=== PATIENT | female | born 1950 | race Caucasian/White ===

== ENCOUNTER → 2016-11-22 | Outpatient (CLI) | payer OTHER ==
[~2016-11-22] MED LIST: ESCI10TA PO; IBUP400T20 PO; LEVO50TA4 PO; MELO7.5T4 PO; PRAV40TA2 PO; PRED20 PO; TRIA40P I-ARTICULR; VALS80TA2 PO
--- NOTE | 2016-11-22 14:35 | RADRPT ---
EXAM DATE/TIME: 11/22/2016 14:11 [facility] COMPARISON: No previous studies available for comparison. INDICATIONS : Left hip pain with no known trauma. MEDICAL HISTORY : Arthritis. SURGICAL HISTORY : None. ENCOUNTER: Initial ACUITY: 2 months PAIN SCORE: 8/10 LOCATION: Left Hip FINDINGS: Examination of the left hip was performed with AP Pelvis. The primary and secondary trabecular patte rn of the femoral neck is intact. The hip joint is of normal width without significant sclerosis or bony hypertrophy. The acetabulum is grossly intact. CONCLUSION: No acute disease. Messi Squires MD on November 22, 2016 at 14:33 Board Certified Radiologist. This report was verified electronically.
--- NOTE | 2016-11-22 14:47 | RADRPT ---
EXAM DATE/TIME: 11/22/2016 14:11 [facility] COMPARISON: No previous studies available for comparison. INDICATIONS : Right knee pain with no known trauma. MEDICAL HISTORY : Arthritis. SURGICAL HISTORY : None. ENCOUNTER: Initial ACUITY: 7 - 11 months PAIN SCORE: 8/10 LOCATION: Right knee FINDINGS: There is narrowing of the medial joint space. Osteophytes are seen medially. There is a minimal effus ion. No fracture seen. CONCLUSION: Degenerative change of the medial joint space and a minimal effusion. Himanshu Starkey MD on November 22, 2016 at 14:43 Board Certified Radiologist. This report was verified electronically.
== END ==
LOC: HRAD 13:54
PROVIDERS: ATTEND Family Medicine
DX: M17.11 Unilateral primary osteoarthritis, right knee (principal); M25.552 Pain in left hip
CPT/HCPCS: 73502; 73564

== ENCOUNTER → 2017-02-12 | Outpatient (CLI) | payer OTHER ==
[~2017-02-12] VITALS: Ht 160 cm; Wt 65.2 kg
[~2017-02-12] MED LIST changes: +CHLORHEXIDINE GLUCONATE 2 % 1 PACK (2 CLOTHS) TOPICAL PRN; +INSULIN HUMAN REGULAR 1,000 UNITS/10 ML VIAL SQ PRN; +LACTATED RINGER'S 1000 ML IV PRN; -MELO7.5T4 PO; +METOPROLOL TARTRATE 25 MG TAB PO PRN; +POVIDONE IODINE 5% (ANTISEPSIS KIT) 4 APPLICATIONS EACH NARE PRN; -PRED20 PO; +PROPOFOL 200 MG/20 ML AMP IV ONE; +SODIUM CHLORID 0.9% 500 ML IV PRN
[2017-02-12 11:32] VITALS: BP 126/90; PULSE 79; RESP 20; TEMP 98.5; O2SAT 96
[2017-02-12 13:25] VITALS: TEMP 97.6
[2017-02-12 13:45] VITALS: BP 130/76; PULSE 76; RESP 18; O2SAT 97
--- NOTE | 2017-02-12 14:31 | EKG ---
Date Performed: 02/12/2017 Time Performed: 11:44:56 PTAGE: 66 years EKG: Sinus rhythm NORMAL ECG NO PREVIOUS TRACING DOCTOR: Alejandro Dickinson Interpretating Date/Time 02/12/2017 14:29:41
== END ==
LOC: HEND 11:03
DX: Z12.11 Encounter for screening for malignant neoplasm of colon (principal); K57.90 Diverticulosis of intestine, part unspecified, without perforation or abscess without bleeding; Z01.810 Encounter for preprocedural cardiovascular examination
CPT/HCPCS: 00810; 45378; 93005; J7120

== ENCOUNTER 2017-05-20 14:42 | Emergency (ER) | payer OTHER ==
[~2017-05-20] VITALS: Ht 160 cm; Wt 67.7 kg
[~2017-05-20 14:42] MED LIST changes: -CHLORHEXIDINE GLUCONATE 2 % 1 PACK (2 CLOTHS) TOPICAL PRN; +IBUP-232 PO; -IBUP400T20 PO; -INSULIN HUMAN REGULAR 1,000 UNITS/10 ML VIAL SQ PRN; -LACTATED RINGER'S 1000 ML IV PRN; -METOPROLOL TARTRATE 25 MG TAB PO PRN; -POVIDONE IODINE 5% (ANTISEPSIS KIT) 4 APPLICATIONS EACH NARE PRN; -PROPOFOL 200 MG/20 ML AMP IV ONE; -SODIUM CHLORID 0.9% 500 ML IV PRN; -TRIA40P I-ARTICULR
[2017-05-20 15:06] VITALS: BP 117/65; PULSE 82; RESP 20; TEMP 98.2; O2SAT 92
--- NOTE | 2017-05-20 16:41 | PD ---
HPI Chief Complaint: Fall Time Seen by Provider: 16:20 Travel History International Travel<30 days: No Contact w/Intl Traveler<30days: No History of Present Illness HPI 66-year-old female presents to the emergency room for evaluation of neck pain after trip and fall 2 days ago. Patient tripped while walking over the threshold of the door and fell forward striking the left side of her face on the carpet. She denies loss of consciousness. She is not on blood thinners. Denies headache, nausea, vomiting, or changes in mental status. Patient lost her right central incisor. She went to the dentist this morning and while there mentioned her neck pain. The dentist recommended she come to the emergency room for evaluation. Neck pain is midline without radiation. She denies paresthesias. She has been taking 800 mg ibuprofen without significant relief in symptoms. It is worsened with range of motion. PFSH Social History Tobacco Use: No Allergies-Medications (Allergen,Severity, Reaction): Coded Allergies: No Known Allergies (Unverified , 05/20/17) Reported Meds & Prescriptions Reported Meds & Active Scripts Active Valsartan-Hydrochlorothiazide 80-12.5 Mg Tab 1 Tab PO DAILY Levothyroxine (Levothyroxine Sodium) 50 Mcg Tab 50 Mcg PO DAILY Pravastatin 40 Mg Tab 40 Mg PO DAILY Escitalopram (Escitalopram Oxalate) 10 Mg Tab 10 Mg PO DAILY Review of Systems Except as stated in HPI: all other systems reviewed are Neg Physical Exam Narrative GENERAL: Well-nourished, well-developed female in no acute distress. Afebrile. Ambulatory. SKIN: Focused skin assessment warm/dry. No erythema or ecchymosis. There is a small abrasion to the left forehead. HEAD: Normocephalic. EYES: No scleral icterus. No injection or drainage. NECK: Supple. No meningeal signs. Trachea midline. Mild tenderness to palpation of the midline especially over C6 and C7. Full range of motion without significant pain. CARDIOVASCULAR: Regular rate and rhythm without murmurs, gallops, or rubs. RESPIRATORY: Breath sounds equal bilaterally. No accessory muscle use. NEUROLOGICAL: Awake and alert. Cranial nerves II through XII intact. Motor and sensory grossly within normal limits. Five out of 5 muscle strength in all muscle groups. Normal speech. Data Data Last Documented VS Vital Signs Date Time Temp Pulse Resp B/P (MAP) Pulse Ox O2 Delivery O2 Flow Rate FiO2 05/20/17 15:06 98.2 82 20 117/65 (82) [address] Cerv Spine W/O Contrast (05/20/17 ) MDM Medical Decision Making Medical Screen Exam Complete: Yes Emergency Medical Condition: Yes Medical Record Reviewed: Yes Differential Diagnosis Cervical strain, spondylolisthesis, fracture Narrative Course 66-year-old female presents to the emergency room for evaluation of posterior neck pain after trip and fall 2 days ago. Patient fell forward striking her head on the carpet. She had headache at the time of that has gone away. Denies loss of consciousness. She is not on blood thinners. Patient denies paresthesias. States she has been taking 800 mg ibuprofen without significant relief in symptoms. Physical exam reveals some midline tenderness over C6 and C7. No erythema, ecchymosis, edema, or step-off deformity. Full range of motion. [place] CT cervical spine rule recommends imaging given patient's midline tenderness. CT is negative. Cervical strain. Patient discharged with prescription for ibuprofen and Robaxin. Told to follow up with a primary care physician if symptoms persist for outpatient MRI or return for worsening symptoms. She understands and agrees to plan. Diagnosis Primary Impression: Cervical strain, acute Qualified Codes: S16.1XXA - Strain of muscle, fascia and tendon at neck level , initial encounter Referrals: Primary Care Physician Additional Instructions: Rest and drink plenty of fluids. Take Robaxin as directed, as needed for pain. Take ibuprofen with food as directed, as needed for pain. Apply ice to the affected area for 20 minutes at a time, as needed for pain and swelling. Follow-up with a primary care physician. Return to the emergency room for worsening symptoms. Med/Other Pt SpecificInfo: Prescription(s) given Disposition: 01 DISCHARGE HOME Condition: Stable Cindy Ureña May 20, 2017 16:40
--- NOTE | 2017-05-20 17:26 | RADRPT ---
EXAM DATE/TIME: 05/20/2017 17:08 [facility] COMPARISON: No previous studies available for comparison. INDICATIONS : Fell two days ago. Posterior neck pain. RADIATION DOSE: 25.99 CTDIvol (mGy) MEDICAL HISTORY : None SURGICAL HISTORY : None. ENCOUNTER: Initial ACUITY: 2 days PAIN SCALE: 8/10 LOCATION: neck TECHNIQUE: Volumetric scanning of the cervical spine was performed. Multiplanar reconstructions i n the sagittal, coronal and oblique axial planes were performed. Using automated exposure control a nd adjustment of the mA and/or kV according to patient size, radiation dose was kept as low as reason ably achievable to obtain optimal diagnostic quality images. DICOM format image data is available e lectronically for review and comparison. FINDINGS: The sagittal reconstructions demonstrate normal alignment and normal prevertebral soft tissues. The d ens is intact and there is a normal atlantoaxial relationship. The axial images demonstrate that the vertebral bodies and posterior elements are intact. The soft ti ssues are within normal limits. There is no evidence of acute fracture or malalignment. There are deg enerative changes involving left C4-5 facet and right C5-6 facet. CONCLUSION: Negative trauma CT. Vitor Pedersen MD on May 20, 2017 at 17:22 Board Certified Radiologist. This report was verified electronically.
[2017-05-20] MEDS ORDERED: IBUP-232 PO (17:38)
[2017-05-20] MEDS ORDERED: ROBA750T PO (17:39)
== END 2017-05-20 17:45 | disposition home or self-care (01) ==
LOC: PHED 14:42 → PHEFT 17:45
DX: S16.1XXA Strain of muscle, fascia and tendon at neck level, initial encounter (principal); W01.198A Fall on same level from slipping, tripping and stumbling with subsequent striking against other object, initial encounter; Y93.01 Activity, walking, marching and hiking; Y92.008 Other place in unspecified non-institutional (private) residence as the place of occurrence of the external cause
CPT/HCPCS: 72125; 99284

== ENCOUNTER 2017-05-23 10:07 | Emergency (ER) | payer OTHER ==
[~2017-05-23] VITALS: Ht 160 cm; Wt 67.6 kg
[~2017-05-23 10:07] MED LIST changes: +ROBA750T PO
[2017-05-23 10:09] VITALS: BP 139/79; PULSE 89; RESP 18; TEMP 98.7; O2SAT 99
--- NOTE | 2017-05-23 10:25 | PD ---
HPI Chief Complaint: Edema Time Seen by Provider: 10:25 Travel History International Travel<30 days: No Contact w/Intl Traveler<30days: No Traveled to known affect area: No History of Present Illness HPI 66-year-old female came to the emergency room with history of some facial swelling mostly on the right side that was more pronounced this morning. Patient had a major dental procedure done 3 days ago. Since then she did develop facial swelling mostly on the upper lip. She has been icing it and taking Excedrin Migraine. However this morning she noticed that the right side of her face as well as around the eyelid there was significant swelling which concerned her and hence she came in. No history of fever or chills. No history of severe pain. No history of airway issues or swallowing issues. Upon asking patient said she was laying on the right side of her face at night. [facility] Past Medical History Narrative Medical List of her past medical, surgical, social and family history is reviewed from the nursing note. ?: Not Social History Tobacco Use: No Allergies-Medications (Allergen,Severity, Reaction): Coded Allergies: No Known Allergies (Unverified , 05/23/17) Comments No known drug allergies. Reported Meds & Prescriptions Reported Meds & Active Scripts Active Robaxin (Methocarbamol) 750 Mg Tab 750 Mg PO Q8HR Ibuprofen 600 Mg Tab 600 Mg PO Q8HR PRN Valsartan-Hydrochlorothiazide 80-12.5 Mg Tab 1 Tab PO DAILY Levothyroxine (Levothyroxine Sodium) 50 Mcg Tab 50 Mcg PO DAILY Pravastatin 40 Mg Tab 40 Mg PO DAILY Escitalopram (Escitalopram Oxalate) 10 Mg Tab 10 Mg PO DAILY Narrative Medication Most of her home medications reviewed from the nursing note. Review of Systems Except as stated in HPI: all other systems reviewed are Neg Physical Exam Narrative GENERAL: Awake, alert, anxious SKIN: Focused skin assessment warm/dry. Right side of the face looks puffier than the left. Periorbital edema especially on the lower eyelid which appears to be fluid filled. Nontender and no erythema. HEAD: Atraumatic. Normocephalic. EYES: Pupils equal and round. No scleral icterus. No injection or drainage. ENT: No nasal bleeding or discharge. Mucous membranes pink and moist. Upper lip slightly swollen. The stitches look intact. No obvious bleeding. NECK: Trachea midline. No JVD. CARDIOVASCULAR: Regular rate and rhythm. No murmur appreciated. RESPIRATORY: No accessory muscle use. Clear to auscultation. Breath sounds equal bilaterally. GASTROINTESTINAL: Abdomen soft, non-tender, nondistended. Hepatic and splenic margins not palpable. MUSCULOSKELETAL: No obvious deformities. No clubbing. No cyanosis. No edema. NEUROLOGICAL: Awake and alert. No obvious cranial nerve deficits. Motor grossly within normal limits. Normal speech. PSYCHIATRIC: Appropriate mood and affect; insight and judgment normal. Data Data Last Documented VS Vital Signs Date Time Temp Pulse Resp B/P (MAP) Pulse Ox O2 Delivery O2 Flow Rate FiO2 05/23/17 10:09 98.7 89 18 139/79 (99) 99 MDM Medical Decision Making Medical Screen Exam Complete: Yes Emergency Medical Condition: Yes Medical Record Reviewed: Yes Differential Diagnosis Dental procedure, postprocedure swelling Narrative Course 10:36 AM patient was given reassurance. I'll discharge her home with instructions. Procedures EKG Prior to Arrival: No Diagnosis Primary Impression: post operative swelling Additional Impression: Post-operative complication Qualified Codes: L76.82 - Other postprocedural complications of skin and subcutaneous tissue Referrals: Primary Care Physician Additional Instructions: Please return to the ER if the condition worsens mainly in the form of pain, fever, redness or any other concerns. Otherwise follow-up with your dentist. Apply cold compress and keep the head in an elevated position especially when asleep to drain the swelling down. Med/Other Pt SpecificInfo: No Change to Meds Disposition: 01 DISCHARGE HOME Condition: Stable Renetta Roberson MD May 23, 2017 10:25
== END 2017-05-23 10:40 | disposition home or self-care (01) ==
LOC: PHEFT 10:07
DX: R22.0 Localized swelling, mass and lump, head (principal)
CPT/HCPCS: 99282

== ENCOUNTER 2018-09-06 12:18 | Observation (INO) ==
[2018-09-06] MEDS ORDERED: Methocarbamol 500 MG Tablet PO ONE (12:53)
[2018-09-06 13:23] LABS: Baso % (Auto) 0.8 % (0.0-2.0); Eos # (Auto) 0.1 th/mm3 (0.0-0.4); Eos % (Auto) 3.5 % (0.0-4.0); Hematocrit 36.1 % (35.0-46.0); Lymph % (Auto) 22.9 % (9.0-44.0); Mean Corpuscular HGB Conc 33.3 % (32.0-36.0); Mean Corpuscular Hemoglobin 30.3 pg (27.0-34.0); Mean Corpuscular Volume 90.8 fL (80.0-100.0); Mean Platelet Volume 6.6 fL (7.0-11.0); Mono # (Auto) 0.4 th/mm3 (0.0-0.9); Mono % (Auto) 9.5 % (0.0-8.0); Neut # (Auto) 2.7 th/mm3 (1.8-7.7); Neut % (Auto) 63.3 % (16.0-70.0); Platelet Count 209 th/mm3 (150-450); Red Blood Count 3.97 mil/mm3 (4.00-5.30); Red Cell Distribution Width 11.6 % (11.6-17.2); White Blood Count 4.2 th/mm3 (4.0-11.0)
[2018-09-06 13:33] LABS: Chloride 100 meq/L (98-107); Potassium 3.1 meq/L (3.5-5.1); Sodium 139 meq/L (136-145)
--- NOTE | 2018-09-06 13:35 | ED ---
HPI General Chief Complaint: Back Pain/Injury Stated Complaint: Sharp Pain/Lt side Back Recent Detatched Retina Sx Time Seen by Provider: 09/06/18 12:42 Source: patient Mode of arrival: ambulatory Limitations: no limitations History of Present Illness HPI Narrative: 68y female presents to the ED for evaluation of back pain that worsened today. She states she had a retinal surgery and has been required to sit upright for the last several days, likely causing her symptoms. She describes it as sharp, moderate in severity and focused in the upper left shoulder blade. She has not taken any medication for her discomfort. She decided to come in today for evaluation for concern of her heart. She say her brother recently had a heart attack with subsequent stent placement. She also reports chest pain that has occurred a couple times within the last couple of days. She states her last episode of chest pain was this morning that was "a twinge" before resolving spontaneously. Denies palliative or provocative factors. Says the location is mid chest and is nonradiating. She denies cardiac history but states she has a history of hyperlipidemia and hypertension. As discussed previously, she does have a family history of heart problems as her brother has had [place] with stent placement. She denies shortness of breath, nausea, vomiting. MD Complaint: Reports back pain Onset (ago): day(s) Duration: Reports intermittent Similar Symptoms Previously: No Exacerbating factors: sitting upright Related Data Home Medications Medication Instructions Recorded Confirmed celecoxib 200 mg PO BID 08/21/18 09/06/18 levothyroxine 50 mcg PO DAILY 08/21/18 09/06/18 losartan-hydrochlorothiazide 1 tab PO DAILY 08/21/18 09/06/18 oxycodone-acetaminophen 1 - 2 tab PO Q4-6H PRN 08/21/18 09/06/18 pravastatin 40 mg PO DAILY 08/21/18 09/06/18 sertraline 100 mg PO DAILY 08/21/18 09/06/18 Allergies Allergy/AdvReac Type Severity Reaction Status Date / Time No Known Allergies Allergy Verified 09/06/18 12:38 Review of Systems ROS: all other systems reviewed are negative [facility] Family History Family History Brother Myocardial infarction Social History Social History Substance History: No History of Abuse Second Hand Smoke Exposure: No Smoking Status: Former smoker Tobacco Type: Cigarettes How Often Do You Have a Drink Containing Alcohol: 4 or more times a week Recent Travel in [facility] within the Last 8 Weeks: No Recent Out of Country Travel within the Last 8 Weeks: No Immunization History Tetanus Immunization: Unsure Exam Narrative Exam Narrative: GENERAL: WD, WN in NAD SKIN: Focused skin assessment warm/dry. HEAD: Atraumatic. Normocephalic. EYES: Pupils equal and round. No scleral icterus. No injection or drainage. ENT: No nasal bleeding or discharge. Mucous membranes pink and moist. No tonsillar hypertrophy or exudate. NECK: Trachea midline. No JVD. No meningismus. No midline tenderness. CARDIOVASCULAR: Regular rate and rhythm. No murmur appreciated. RESPIRATORY: No accessory muscle use. Clear to auscultation. Breath sounds equal bilaterally. No CVA tenderness MUSCULOSKELETAL: No obvious deformities. No clubbing. No cyanosis. No edema. No tenderness to palpation of the calves. Sensation intact to bilateral lower extremities. Left shoulder-tenderness palpation of the shoulder musculature that reproduces some of her shoulder pain. Notable muscle spasms. NEUROLOGICAL: Awake and alert. No obvious cranial nerve deficits. Motor grossly within normal limits. Normal speech. PSYCHIATRIC: Appropriate mood and affect; insight and judgment normal. Course Initial Documented Vital Signs Temperature 98.8 F 09/06/18 12:32 Pulse Rate 75 09/06/18 12:32 Respiratory Rate 16 09/06/18 12:32 Blood Pressure 141/88 H 09/06/18 12:32 Pulse Oximetry 98 09/06/18 12:32 Last Documented Vital Signs Temperature 98.3 F 09/06/18 16:00 Pulse Rate 74 09/06/18 16:00 Respiratory Rate 20 09/06/18 16:00 Blood Pressure 134/82 09/06/18 16:00 Pulse Oximetry 96 09/06/18 16:00 Medical Decision Making ALINE Attestation ALINE supervised visit: Yes Attestation: I, Dr. Huitron, have reviewed the advance practice practitioner's documentation and am in agreement, met with the patient face to face, made the diagnosis, and the medical decision making was done by me. *My assessment and Findings: GERD vs. musculoskeletal pain vs. ACS 68yo F with HTN and HLD here with atypical chest pain. Labs reviewed, no leukocytosis. H/H normal. Mild hypokalemia at 3.1, replaced. Troponin negative. CXR negative. Even though chest pain is atypical, she has cardiac risk factors so will do serial EKG and cardiac enzyme in chest pain center. MDM Narrative Medical decision making narrative: 68-year-old female presents to the emergency department for evaluation of left upper shoulder pain and chest pain. She states that she has had to sit upright since her surgery couple of days ago and this may have exacerbated her left upper shoulder pain. She also reports a couple of days of intermittent chest pain that is located in the middle of her chest, described as a "twinge" before resolving spontaneously. No palliative or provocative factors. Denies history of cardiac issues. She does report a history of hypertension hyperlipidemia. She also states that her brother was recently diagnosed and treated with 2 heart stents. Her vital signs are stable. Exam findings the measured well-developed well-nourished 68-year-old female in no acute distress. Patient is sitting upright. She has tenderness palpation of the left shoulder musculature that reproduces some of her back pain. She has no tenderness palpation of the chest wall. Aspirin 325 mg administered. Robaxin for muscle spasms of her back. After examination, she states that the pain is no better and is worsening. Administer hydrocodone for pain. She still appears well, nontoxic. EKG shows sinus rhythm without ST elevation or depression at rate 61. Labs notable for potassium 3.1, administered 40meq potassium p.o. Troponin 0.02. At this point, believe patient has muscle spasms secondary to her sitting up in bed as directed by her previous provider for her retinal surgery. I believe it is reasonable to admit this patient to the chest pain center as well for her intermittent chest pain throughout the week. At admission, patient is chest pain-free. She states her last chest pain was this morning. Medical Screen Exam Complete: Yes Emergency Medical Condition: Yes Differential Diagnosis Differential Diagnosis: AMI, angina, unstable angina, costochondritis, rib fracture, pneumonia, pneumothorax, aortic dissection, aortic aneurysm, pneumonitis, pulmonary embolism. Muscle spasms, muscle strain Lab Data Result diagrams: 09/06/18 13:10 09/06/18 13:10 Lab Results 09/06/18 09/06/18 09/06/18 Range/Units 13:10 13:10 13:10 CBC w Diff Auto diff final WBC 4.2 (4.0-11.0) th/mm3 RBC 3.97 L (4.00-5.30) mil/mm3 Hgb 12.0 (11.6-15.3) gm/dL Hct 36.1 (35.0-46.0) % MCV 90.8 (80.0-100.0) fL MCH 30.3 (27.0-34.0) pg MCHC 33.3 (32.0-36.0) % RDW 11.6 (11.6-17.2) % Plt Count 209 (150-450) th/mm3 MPV 6.6 L (7.0-11.0) fL Neut % (Auto) 63.3 (16.0-70.0) % Lymph % (Auto) 22.9 (9.0-44.0) % [place] % (Auto) 9.5 H (0.0-8.0) % Eos % (Auto) 3.5 (0.0-4.0) % Baso % (Auto) 0.8 (0.0-2.0) % Neut # (Auto) 2.7 (1.8-7.7) th/mm3 Lymph # (Auto) 1.0 (1.0-4.8) th/mm3 [place] # (Auto) 0.4 (0.0-0.9) th/mm3 Eos # (Auto) 0.1 (0.0-0.4) th/mm3 Baso # (Auto) 0.0 (0.0-0.2) th/mm3 WBC Differential . Differential Comment . PT 10.7 (9.8-11.6) sec INR 1.1 Ratio APTT 25.2 (23.4-31.7) sec Sodium 139 (136-145) meq/L Potassium 3.1 L (3.5-5.1) meq/L Chloride 100 (98-107) meq/L Carbon Dioxide 30.9 (21.0-32.0) meq/L Anion Gap 8 (5-15) meq/L BUN 18 (7-18) mg/dL Creatinine 0.65 (0.50-1.00) mg/dL Estimated GFR Greater than 89 (>89) mL/min Random Glucose 103 (74-106) mg/dL Calcium 8.8 (8.5-10.1) mg/dL Total Bilirubin 0.8 (0.2-1.0) mg/dL AST 18 (15-37) U/L ALT 25 (10-53) U/L Alkaline Phosphatase 84 (45-117) U/L Total Creatine Kinase (26-192) U/L Troponin I Less than 0.02 L (0.02-0.05) ng/mL Total Protein 7.3 (6.4-8.2) g/dL Albumin 4.3 (3.4-5.0) g/dL 09/06/18 09/06/18 Range/Units 15:50 18:48 CBC w Diff WBC (4.0-11.0) th/mm3 RBC (4.00-5.30) mil/mm3 Hgb (11.6-15.3) gm/dL Hct (35.0-46.0) % MCV (80.0-100.0) fL MCH (27.0-34.0) pg MCHC (32.0-36.0) % RDW (11.6-17.2) % Plt Count (150-450) th/mm3 MPV (7.0-11.0) fL Neut % (Auto) (16.0-70.0) % Lymph % (Auto) (9.0-44.0) % [place] % (Auto) (0.0-8.0) % Eos % (Auto) (0.0-4.0) % Baso % (Auto) (0.0-2.0) % Neut # (Auto) (1.8-7.7) th/mm3 Lymph # (Auto) (1.0-4.8) th/mm3 [place] # (Auto) (0.0-0.9) th/mm3 Eos # (Auto) (0.0-0.4) th/mm3 Baso # (Auto) (0.0-0.2) th/mm3 WBC Differential Differential Comment PT (9.8-11.6) sec INR Ratio APTT (23.4-31.7) sec Sodium (136-145) meq/L Potassium (3.5-5.1) meq/L Chloride (98-107) meq/L Carbon Dioxide (21.0-32.0) meq/L Anion Gap (5-15) meq/L BUN (7-18) mg/dL Creatinine (0.50-1.00) mg/dL Estimated GFR (>89) mL/min Random Glucose (74-106) mg/dL Calcium (8.5-10.1) mg/dL Total Bilirubin (0.2-1.0) mg/dL AST (15-37) U/L ALT (10-53) U/L Alkaline Phosphatase (45-117) U/L Total Creatine Kinase 68 68 (26-192) U/L Troponin I Less than 0.02 L Less than 0.02 L (0.02-0.05) ng/mL Total Protein (6.4-8.2) g/dL Albumin (3.4-5.0) g/dL Imaging Data Radiologist's impression: Chest X-Ray 09/06/18 12:51 CONCLUSION: No evidence of acute cardiothoracic process. ECG Data EKG Prior to Arrival: No Attestation: I personally reviewed and interpreted this ECG as follows: Interpretation: NSR 61bpm. Normal axis. SC interval 163ms. No significant ST elevation or depression. Discharge Plan Discharge Disposition Patient Disposition: ED Admit(ED Internal Use Only) Discharge Condition Condition: Stable Discharge Order Discharge Orders: ED Use Only Admit Order (Routine); Ordered 09/06/18 Ordered By: Natalie Brownlee Discharge Details Diagnosis: Acute hypokalemia, Chest pain, Muscle spasm Physicians Team ED Provider: Sharmin Huitron ED Midlevel Provider: Natalie Brownlee Primary Care Provider: Timmy García Attending Provider: Corby Crook Other Providers: Tejas Heredia Status ED Status: Left Department Discharge Information Discharge Date/Time: 09/06/18 16:45
[2018-09-06 13:37] LABS: Calcium 8.8 mg/dL (8.5-10.1)
[2018-09-06 13:38] LABS: Albumin 4.3 g/dL (3.4-5.0); Anion Gap 8 meq/L (5-15); Blood Urea Nitrogen 18 mg/dL (7-18); Carbon Dioxide 30.9 meq/L (21.0-32.0); Glucose,Random 103 mg/dL (74-106)
[2018-09-06 13:41] LABS: Alanine Aminotransferase 25 U/L (10-53); Aspartate Aminotransferase 18 U/L (15-37); Glomerular Filtration Rate Greater Than 89 mL/min (>89)
--- NOTE | 2018-09-06 13:41 | XR ---
EXAM DATE: 09/06/2018 1:26 PM EST AGE/SEX: 68 years / Female INDICATIONS: Left sided back pain for two days. CLINICAL DATA: This is the patient's initial encounter. Patient reports that signs and symptoms have been present for 2 days and indicates a pain score of 6/10. MEDICAL/SURGICAL HISTORY: Hypertension. . Detached retina surgery. COMPARISON: No prior exams available for comparison. FINDINGS: A single AP view of the chest demonstrates the lungs to be symmetrically aerated without evidence of mass, infiltrate or effusion. The cardiomediastinal contours are unremarkable. Osseous structures a re intact. CONCLUSION: No evidence of acute cardiothoracic process. Electronically signed by: Messi Squires MD Board Certified Radiologist 09/06/2018 1:39 PM EST
[2018-09-06 13:43] LABS: Total Protein 7.3 g/dL (6.4-8.2)
[2018-09-06 13:44] LABS: Alkaline Phosphatase 84 U/L (45-117)
[2018-09-06 14:18] LABS: Activated Partial Thrombo Time 25.2 sec (23.4-31.7); INR 1.1 Ratio; Prothrombin Time 10.7 sec (9.8-11.6)
--- NOTE | 2018-09-06 14:21 | ECG ---
Date Performed: 09/06/2018 Time Performed: 13:30:49 PTAGE: 68 years EKG: Sinus rhythm NORMAL ECG PREVIOUS TRACING : 08/22/2018 14.53 No significant change from previous tracing noted. DOCTOR: Job Robins Interpretating Date/Time 09/06/2018 14:20:30
[2018-09-06] MEDS ORDERED: Acetaminophen 500 MG Tablet PO PRN (14:45)
[2018-09-06 16:41] LABS: Creatine Kinase 68 U/L (26-192)
--- NOTE | 2018-09-06 17:33 | P.HP ---
History of Present Illness Primary Care Physician: Timmy Dubois MD, R3 Chief Complaint: Back pain History of Present Illness: This is a 68-year-old female patient with a known medical history of hypertension, hyperlipidemia and hypothyroidism who presented to the ED for evaluation of back pain. Patient states that she is underwent recent retinal surgery and has been required to sit upright to sleep for the past several days , subsequently she has developed a back pain that is stated in her midsternal back, sharp in nature and denies any radiation of the pain. She states that the pain started roughly Friday night and has just become worse of the past couple days. When questioned about chest pain patient states that she had a quick sharp sensation this morning, otherwise she denies any chest pain. Patient denies any associated nausea, vomiting, diaphoresis or shortness of breath. It should be noted that patient's brother had an acute STEMI a couple weeks ago and patient expresses concern that she has similar presenting symptoms as he did, requesting evaluation on her heart. Denies ever having heart attack in the past. Does not follow with a maternity nurse. Has had a stress test roughly 15 years ago which was reportedly unremarkable. Denies any recent illness including fever, chills, cough, headache, abdominal pain, nausea , vomiting, diarrhea or dysuria. At the time of assessment patient states that her back pain has improved with the use of oxycodone. Denies any current chest pain. No chest pain to palpation. - Diagnosis (1) Back pain (2) Muscle spasm Review of Systems All other systems reviewed negative except as stated in HPI PMFSH - History History Provided By: Patient - Medical History Medical History: Medical History (Last Reviewed 09/06/18 @ 17:27 by Tatum Morales) Anxiety and depression Arthritis High cholesterol Hypertension Hypothyroidism Pain, joint, knee, right Retinal detachment Wears glasses - Surgical History Surgical History: Surgical History (Last Reviewed 09/06/18 @ 17:27 by Tatum Morales) History of total left knee replacement (TKR) History of total right knee replacement Hx of appendectomy Hx of hammer toe correction - Family History Family History: Family History (Last Updated 09/06/18 @ 17:27 by Tatum Morales) Brother Myocardial infarction - Social History I have reviewed the patient's Social History: Yes - Tobacco History Second Hand Smoke Exposure: No Tobacco Use In Past 30 Days: No Smoking Status: Former smoker - Alcohol History How Often Do You Have a Drink Containing Alcohol: 4 or more times a week - Substance Use History Substance History: No History of Abuse - Travel History Recent Travel in the [place] Within the Last 8 Weeks: No Recent Travel Out of the Country Within the Last 8 Weeks: No - Immunization History Tetanus Immunization: Unsure Medications and Allergies Active Medications: Active Medications Acetaminophen (Tylenol) 500 mg PO Q4H PRN PRN Reason: HEADACHE Sodium Chloride (Ns Flush) 2 ml IV.FLUSH UNSCH PRN PRN Reason: FLUSH AFTER USING IV ACCESS Sodium Chloride (Ns Flush) 2 ml IV.FLUSH BID PATRICIA Sodium Chloride (Ns Flush) 2 ml IV.FLUSH PRN PRN PRN Reason: FLUSH AFTER USING IV ACCESS Allergies Allergy/AdvReac Type Severity Reaction Status Date / Time No Known Allergies Allergy Verified 09/06/18 12:38 Home Medications Medication Instructions Recorded Confirmed Type celecoxib 200 mg PO BID 08/21/18 09/06/18 History levothyroxine 50 mcg PO DAILY 08/21/18 09/06/18 History losartan-hydrochlorothiazide 1 tab PO DAILY 08/21/18 09/06/18 History oxycodone-acetaminophen 1 - 2 tab PO Q4-6H PRN 08/21/18 09/06/18 History pravastatin 40 mg PO DAILY 08/21/18 09/06/18 History sertraline 100 mg PO DAILY 08/21/18 09/06/18 History Exam Vital signs: Vital Signs 09/06/18 12:32 09/06/18 13:55 09/06/18 15:53 Temperature 98.8 F Pulse Rate 75 72 82 Respiratory Rate 16 18 18 Blood Pressure 141/88 H 140/88 133/84 Pulse Oximetry 98 97 Intake & Output 09/05/18 09/06/18 09/06/18 18:59 06:59 18:59 Weight 63.3 kg Narrative: GENERAL: Well-developed, well-nourished patient in [facility]. SKIN: Warm and dry. No rash. HEAD: Normocephalic. Atraumatic. EYES: Pupils equal and round. No scleral icterus. Left eye conjunctival hemorrhage status post retinal surgery ENT: No nasal bleeding or discharge. Mucous membranes pink and moist. NECK: Supple. Trachea midline. CARDIOVASCULAR: Regular rate and rhythm. S1, S2 noted. No murmur appreciated. No chest pain to palpation RESPIRATORY: No accessory muscle use. Clear to auscultation. Breath sounds equal bilaterally. GASTROINTESTINAL: Abdomen soft, non-tender, nondistended. Normoactive bowel sounds x4. MUSCULOSKELETAL: No obvious deformities. Extremities without clubbing, cyanosis , or edema. NEUROLOGICAL: Awake and alert. No obvious cranial nerve deficits. Motor grossly within normal limits. 5/5 muscle strength in bilateral upper and lower extremities. Normal speech. PSYCHIATRIC: Appropriate mood and affect; insight and judgment normal. Results - Labs CBC & Chem 7: 09/06/18 13:10 09/06/18 13:10 Labs: Laboratory Results - last 24 hr 09/06/18 09/06/18 09/06/18 13:10 13:10 13:10 CBC w Diff Auto diff final WBC 4.2 RBC 3.97 L Hgb 12.0 Hct 36.1 MCV 90.8 MCH 30.3 MCHC 33.3 RDW 11.6 Plt Count 209 MPV 6.6 L Neut % (Auto) 63.3 Lymph % (Auto) 22.9 [place] % (Auto) 9.5 H Eos % (Auto) 3.5 Baso % (Auto) 0.8 Neut # (Auto) 2.7 Lymph # (Auto) 1.0 [place] # (Auto) 0.4 Eos # (Auto) 0.1 Baso # (Auto) 0.0 WBC Differential . Differential Comment . PT 10.7 INR 1.1 APTT 25.2 Sodium 139 Potassium 3.1 L Chloride 100 Carbon Dioxide 30.9 Anion Gap 8 BUN 18 Creatinine 0.65 Estimated GFR Greater than 89 Random Glucose 103 Calcium 8.8 Total Bilirubin 0.8 AST 18 ALT 25 Alkaline Phosphatase 84 Total Creatine Kinase Troponin I Less than 0.02 L Total Protein 7.3 Albumin 4.3 09/06/18 15:50 CBC w Diff WBC RBC Hgb Hct MCV MCH MCHC RDW Plt Count MPV Neut % (Auto) Lymph % (Auto) [place] % (Auto) Eos % (Auto) Baso % (Auto) Neut # (Auto) Lymph # (Auto) [place] # (Auto) Eos # (Auto) Baso # (Auto) WBC Differential Differential Comment PT INR APTT Sodium Potassium Chloride Carbon Dioxide Anion Gap BUN Creatinine Estimated GFR Random Glucose Calcium Total Bilirubin AST ALT Alkaline Phosphatase Total Creatine Kinase 68 Troponin I Less than 0.02 L Total Protein Albumin - Imaging Impressions Chest X-Ray 09/06/18 12:51 CONCLUSION: No evidence of acute cardiothoracic process. Caprini VTE Risk Assessment Caprini VTE Risk Assessment: Moderate/High Risk (score >= 2) Caprini Risk Assessment Model: Point Value = 1 Point Value = 2 Point Value = 3 Point Value = 5 Age 41-60 Minor surgery BMI > 25 kg/m2 Swollen legs Varicose veins or History of unexplained or recurrent spontaneous Oral contraceptives or hormone replacement Sepsis (< 1 month) Serious lung disease, including pneumonia (< 1 month) Abnormal pulmonary function Acute myocardial infarction Congestive heart failure (< 1 month) History of inflammatory bowel disease Medical patient at bed rest Age 61-74 Arthroscopic surgery Major open surgery (> 45 min) Laparoscopic surgery (> 45 min) Malignancy Confined to bed (> 72 hours) Immobilizing plaster cast Central venous access Age >= 75 History of VTE Family history of VTE Factor V Leiden Prothrombin [id number] Lupus anticoagulant Anticardiolipin antibodies Elevated serum homocysteine Heparin-induced thrombocytopenia Other congenital or acquired thrombophilia Stroke (< 1 month) Elective arthroplasty Hip, pelvis, or leg fracture Acute spinal cord injury (< 1 month) Prophylaxis Regimen: Total Risk Factor Score Risk Level Prophylaxis Regimen 0-1 Low Early ambulation 2 Moderate Order ONE of the following: *Sequential Compression Device (SCD) *Heparin 5000 units SQ BID 3-4 Higher Order ONE of the following medications: *Heparin 5000 units SQ TID *Enoxaparin/Lovenox 40 mg SQ daily (WT < 150 kg, CrCl > 30 mL/min) *Enoxaparin/Lovenox 30 mg SQ daily (WT < 150 kg, CrCl > 10-29 mL/min) *Enoxaparin/Lovenox 30 mg SQ BID (WT < 150 kg, CrCl > 30 mL/min) AND/OR *Sequential Compression Device (SCD) 5 or more Highest Order ONE of the following medications: *Heparin 5000 units SQ TID (Preferred with Epidurals) *Enoxaparin/Lovenox 40 mg SQ daily (WT < 150 kg, CrCl > 30 mL/min) *Enoxaparin/Lovenox 30 mg SQ daily (WT < 150 kg, CrCl > 10-29 mL/min) *Enoxaparin/Lovenox 30 mg SQ BID (WT < 150 kg, CrCl > 30 mL/min) AND *Sequential Compression Device (SCD) Assessment and Plan - Assessment (1) Back pain Code(s): M54.9 - Dorsalgia, unspecified Status: Acute (2) Muscle spasm Code(s): M62.838 - Other muscle spasm Status: Acute - Plan This is a 68-year-old female patient presented to the ED with: Back pain with one episode of sharp chest pain Rule out ACS versus musculoskeletal etiology -Patient has been admitted to the chest pain center for observation. Serial EKGs and serial troponins have been ordered for ruling out ACS purposes. Initial troponin flat. Continue to monitor trend. -EKG reviewed, normal sinus rhythm, controlled heart rate, no ST changes to indicate any ischemia. Continue cardiac telemetry, monitor for any arrhythmias -Chest x-ray reviewed, no acute cardiopulmonary disease noted. -Patient's risk factors include a family history of cardiovascular disease, hypertension and hyperlipidemia. -If ACS ruled out with cardiac troponins and cardiac EKGs, patient will undergo a cardiac stress test in the morning. -Patient is stable at this time and agreeable to the plan. -Further hospitalization and treatment plan will depend on nuclear imaging results. Hypertension, chronic -Will continue home medications. Monitor blood pressure trends. Hyperlipidemia, chronic -Will continue home statin. Hypothyroidism, chronic -Will continue home levothyroxine. Retinal detachment status post repair -No bending. Control BP. -Supportive care. DVT prophylaxis: SCDs. Ambulation.
[2018-09-06 17:53] VITALS: O2SAT 96
[2018-09-06 19:42] LABS: Creatine Kinase 68 U/L (26-192)
--- NOTE | 2018-09-06 20:42 | ECG ---
Date Performed: 09/06/2018 Time Performed: 18:46:00 PTAGE: 68 years EKG: Sinus rhythm NORMAL ECG PREVIOUS TRACING : 09/06/2018 15.59 No signficant change from previous tracing noted. DOCTOR: Job Robins Interpretating Date/Time 09/06/2018 20:41:00
--- NOTE | 2018-09-06 23:03 | ECG ---
Date Performed: 09/06/2018 Time Performed: 15:59:29 PTAGE: 68 years EKG: Sinus rhythm POSSIBLE LEFT ATRIAL ENLARGEMENT BORDERLINE ECG PREVIOUS TRACING : 09/06/2018 13.30 No significant change from previous tracing noted. DOCTOR: Job Robins Interpretating Date/Time 09/06/2018 23:01:52
[2018-09-06] MEDS ORDERED: ALPRAZolam 0.25 MG Tablet PO ONE (23:07)
[2018-09-06] MEDS ORDERED: LORazepam 0.5 MG Tablet PO ONE (23:09)
[2018-09-07 07:14] LABS: Potassium 3.4 meq/L (3.5-5.1)
[2018-09-07 07:22] LABS: Calcium 8.9 mg/dL (8.5-10.1)
[2018-09-07 07:23] LABS: Carbon Dioxide 29.8 meq/L (21.0-32.0)
--- NOTE | 2018-09-07 08:28 | P.PNIM ---
Subjective Interval history: Follow-up chest pain/back pain. Patient seen and examined, states that she still has continued back pain, she had to sit up in bed secondary to retinal detachment repair. She states that the Ativan helped her sleep. Denies ever having any chest pain since hospitalization. ACS has been ruled out. No arrhythmias overnight. Unable to do cardiac stress test, unable to lie flat. Will have patient follow-up with PCP to perform stress test when cleared by ophthalmology. Physical Exam Vital signs: Vital Signs 09/06/18 12:32 09/06/18 13:55 09/06/18 15:53 Temperature 98.8 F Pulse Rate 75 72 82 Respiratory Rate 16 18 18 Blood Pressure 141/88 H 140/88 133/84 Pulse Oximetry 98 97 09/06/18 16:00 09/06/18 20:00 09/07/18 00:00 Temperature 98.3 F 97.7 F 97.1 F L Pulse Rate 74 67 68 Respiratory Rate 20 16 16 Blood Pressure 134/82 136/80 172/93 H Pulse Oximetry 96 96 96 09/07/18 04:00 Temperature 96.6 F L Pulse Rate 77 Respiratory Rate 16 Blood Pressure 153/97 H Pulse Oximetry 96 Intake & Output 09/06/18 09/07/18 09/07/18 18:59 06:59 18:59 Intake Total 240 / 240 200 / 200 Balance 240 / 240 200 / 200 Weight 63.5 kg 63.5 kg Intake: Oral 240 / 240 200 / 200 Other: # Voids 1 3 Date of Last Bowel Movement 09/06/18 Weight On Admission 63.5 kg Narrative: GENERAL: Well-developed, well-nourished patient in [facility]. SKIN: Warm and dry. No rash. HEAD: Normocephalic. Atraumatic. EYES: Pupils equal and round. No scleral icterus. Left eye conjunctival hemorrhage status post retinal surgery ENT: No nasal bleeding or discharge. Mucous membranes pink and moist. NECK: Supple. Trachea midline. CARDIOVASCULAR: Regular rate and rhythm. S1, S2 noted. No murmur appreciated. No chest pain to palpation RESPIRATORY: No accessory muscle use. Clear to auscultation. Breath sounds equal bilaterally. GASTROINTESTINAL: Abdomen soft, non-tender, nondistended. Normoactive bowel sounds x4. MUSCULOSKELETAL: No obvious deformities. Extremities without clubbing, cyanosis , or edema. NEUROLOGICAL: Awake and alert. No obvious cranial nerve deficits. Motor grossly within normal limits. 5/5 muscle strength in bilateral upper and lower extremities. Normal speech. PSYCHIATRIC: Appropriate mood and affect; insight and judgment normal. Results - Labs CBC & Chem 7: 09/06/18 13:10 09/07/18 05:32 Laboratory Results - last 24 hr 09/06/18 09/06/18 09/06/18 13:10 13:10 13:10 CBC w Diff Auto diff final WBC 4.2 RBC 3.97 L Hgb 12.0 Hct 36.1 MCV 90.8 MCH 30.3 MCHC 33.3 RDW 11.6 Plt Count 209 MPV 6.6 L Neut % (Auto) 63.3 Lymph % (Auto) 22.9 [place] % (Auto) 9.5 H Eos % (Auto) 3.5 Baso % (Auto) 0.8 Neut # (Auto) 2.7 Lymph # (Auto) 1.0 [place] # (Auto) 0.4 Eos # (Auto) 0.1 Baso # (Auto) 0.0 WBC Differential . Differential Comment . PT 10.7 INR 1.1 APTT 25.2 Sodium 139 Potassium 3.1 L Chloride 100 Carbon Dioxide 30.9 Anion Gap 8 BUN 18 Creatinine 0.65 Estimated GFR Greater than 89 Random Glucose 103 Calcium 8.8 Total Bilirubin 0.8 AST 18 ALT 25 Alkaline Phosphatase 84 Total Creatine Kinase Troponin I Less than 0.02 L Total Protein 7.3 Albumin 4.3 09/06/18 09/06/18 09/07/18 15:50 18:48 05:32 CBC w Diff WBC RBC Hgb Hct MCV MCH MCHC RDW Plt Count MPV Neut % (Auto) Lymph % (Auto) [place] % (Auto) Eos % (Auto) Baso % (Auto) Neut # (Auto) Lymph # (Auto) [place] # (Auto) Eos # (Auto) Baso # (Auto) WBC Differential Differential Comment PT INR APTT Sodium 140 Potassium 3.4 L Chloride 103 Carbon Dioxide 29.8 Anion Gap 7 BUN 14 Creatinine 0.68 Estimated GFR 87 L Random Glucose 122 H Calcium 8.9 Total Bilirubin AST ALT Alkaline Phosphatase Total Creatine Kinase 68 68 Troponin I Less than 0.02 L Less than 0.02 L Total Protein Albumin - Imaging Impressions Chest X-Ray 09/06/18 12:51 CONCLUSION: No evidence of acute cardiothoracic process. Assessment and Plan - Assessment (1) Back pain Code(s): M54.9 - Dorsalgia, unspecified Status: Acute (2) Muscle spasm Code(s): M62.838 - Other muscle spasm Status: Acute - Plan This is a 68-year-old female patient presented to the ED with: Back pain with one episode of sharp chest pain -ACS ruled out with serial EKGs and serial troponins. -Patient has been admitted to the chest pain center for observation. Serial EKGs and serial troponins have been ordered for ruling out ACS purposes. Serial troponins flat. -EKG reviewed, normal sinus rhythm, controlled heart rate, no ST changes to indicate any ischemia. Continue cardiac telemetry, monitor for any arrhythmias. None overnight. -Chest x-ray reviewed, no acute cardiopulmonary disease noted. -Patient's risk factors include a family history of cardiovascular disease, hypertension and hyperlipidemia. -ACS ruled out with cardiac troponins and cardiac EKGs, patient is unable to undergo a cardiac stress test, unable to lie flat and unable to perform treadmill stress test secondary to back pain. -Patient will follow up with PCP and agrees to obtain a cardiac stress test within the month when cleared by ophthalmology. -Added Flexeril. Patient has oxycodone at home for pain. Supportive care with heat/cold therapy. Hypertension, chronic -Will continue home medications. Monitor blood pressure trends. Hyperlipidemia, chronic -Will continue home statin. Hypothyroidism, chronic -Will continue home levothyroxine. Retinal detachment status post repair -No bending. Control BP. -Supportive care. DVT prophylaxis: SCDs. Ambulation. Discharge Planning: Will discharge home. Follow-up with PCP and ophthalmology. Patient to undergo a cardiac stress test within the month when cleared by ophthalmology. ACS has been ruled out. No signs of chest pain. Vital signs are stable. Rx is written including Flexeril. Heat cold therapy and supportive care. All likely due to musculoskeletal cause. Activity as tolerated and as recommended by ophthalmology. Diet as tolerated. Patient is stable and will be discharged home.
[2018-09-07 09:50] VITALS: BP 139/87; RESP 18; TEMP 98.7
[2018-09-07 14:40] VITALS: PULSE 91
== END 2018-09-07 12:01 | disposition home or self-care (01) ==
LOC: PHEFT 12:18 → PHEDA 12:18 → PH3 16:35
PROVIDERS: ADMIT Internal Medicine; ATTEND Internal Medicine
CPT/HCPCS: 71010; 71045; 80048; 80053; 82550; 84484; 85025; 85610; 85730; 93005; 99285; G0378